=== PATIENT | male | born 1995 | race Caucasian/White ===

== ENCOUNTER 2017-12-23 17:56 | Emergency (ER) | payer BC ==
[2017-12-23 18:12] VITALS: BMI 20.7
[2017-12-23] MEDS ORDERED: LIDOCAINE HCL 1%, 10 MG/ML (20ML VIAL) ONE (18:37)
--- NOTE | 2017-12-23 19:06 | PDOC ---
History of Present Illness - General History Source: Patient Exam Limitations: No Limitations - History of Present Illness Initial Comments: 12/23/17 19:43 The patient is a 22 year old male with a significant PMH of Bipolar and ADHD who presents to the emergency department s/p fall earlier today. The patient states he was walking along a brick road when the bricks gave way and he fell into a hole. The patient presents to the ER with lacerations to the left wynne and right femur with mild swelling. The patient denies head trauma or any other injuries to other parts of his body. Unknown if patient had his tetanus shot. The patient denies chest pain, shortness of breath, headache and dizziness. Denies fever, chills, nausea, vomit, diarrhea and constipation. Denies dysuria, frequency, urgency and hematuria. Allergies: NKA Past surgical history: None reported. Social history: No reported alcohol, drug, or cigarette use. <Ashly Espino - Last Filed: 12/23/17 20:13> <Keara Emerson - Last Filed: 12/23/17 20:19> - General Chief Complaint: Injury Stated Complaint: FALL/INJURY Time Seen by Provider: 12/23/17 19:05 Past History <Ashly Espino - Last Filed: 12/23/17 20:13> - Past Medical History COPD: No Psychiatric Problems: Yes (bipolar,ADHD) - Suicide/Smoking/Psychosocial Hx Smoking History: Current every day smoker Have you smoked in the past 12 months: Yes Number of Cigarettes Smoked Daily: 5 Information on smoking cessation initiated: No Hx Alcohol Use: Yes Drug/Substance Use Hx: Yes (Marijuanna) <Keara Emerson - Last Filed: 12/23/17 20:19> - Past Medical History Allergies/Adverse Reactions: Allergies Allergy/AdvReac Type Severity Reaction Status Date / Time No Known Allergies Allergy Verified 12/23/17 18:04 Review of Systems - Review of Systems Able to Perform ROS?: Yes Comments:: 12/23/17 19:44 A complete review of 10 out of 10 review of systems is taken and is negative apart from what is previously mentioned below and in the HPI. <Ashly Espino - Last Filed: 12/23/17 20:13> *Physical Exam - Vital Signs Last Vital Signs Temp Pulse Resp BP Pulse Ox 97.1 F L 61 20 128/69 100 12/23/17 18:04 12/23/17 18:04 12/23/17 18:04 12/23/17 18:04 12/23/17 18:04 - Physical Exam Comments: 12/23/17 19:44 General Appearance: No acute distress, well nourished, well developed Head: Atraumatic Eyes: Pupils equal reactive round, extraocular movement intact Cardiac: Regular rate and rhythm, no murmurs, no rubs, no gallops Lungs: Clear to auscultation bilateral, good air movement bilaterally Abdomen: Soft, nondistended, normal bowel sounds, nontender to palpation Extremities: (+) 6cm jagged laceration to the left wynne but no deformity noted. 15cm superficial laceration with swelling to the right femur with mild swelling ; no deformity noted but tender. Full range of motion to all extremities, no cyanosis or clubbing. Skin: Warm and dry,no rashes or lesions, no rash, no petechiae Neuro: AOX3; Cranial Nerves 2-12 grossly intact. <Ashly Espino - Last Filed: 12/23/17 20:13> - Vital Signs Last Vital Signs Temp Pulse Resp BP Pulse Ox 97.1 F L 61 20 128/69 100 12/23/17 18:04 12/23/17 18:04 12/23/17 18:04 12/23/17 18:04 12/23/17 18:04 <eKara Emerson - Last Filed: 12/23/17 20:19> Procedures - Laceration/Wound Repair Left Anterior Distal Leg Wound Length: 5.0 to 7.5 cm Wound Explored: no foreign body present Wound's Depth, Shape: into muscle, irregular, flap Irrigated w/ Saline: Yes Betadine Prep: Yes Anesthesia: 1% Lidocaine Amount of Anesthetic (ccs): 10 Wound Debrided: moderate Wound Repaired With: Sutures Suture Size/Type: 4:0, nylon Number of Sutures: 4 Sterile Dressing Applied: Yes Splint Applied: No Sling Applied: No <Keara Emerson - Last Filed: 12/23/17 20:19> ED Treatment Course - Medications Given in the ED: ED Medications Discontinued Medications Generic Name Dose Route Start Last Admin Trade Name Freq PRN Reason Stop Dose Admin Diphtheria/Tetanus/Acell Pertussis 0.5 ml 12/23/17 19:18 12/23/17 19:20 Boostrix - IM 12/23/17 19:19 0.5 ml .ONCE ONE Administration <Ashly Espino - Last Filed: 12/23/17 20:13> Medical Decision Making - Medical Decision Making 12/23/17 20:00 10cc 1% lidocine applied. Betadine was given. Area was irrigated with 100cc of normal saline. Closed with 4 sutures; 1 mattress and 3 single interrupted sutures. Sterile piece of gauze placed over it. <Ashly Espino - Last Filed: 12/23/17 20:13> - Medical Decision Making 12/23/17 20:08 22-year-old male presents to the emergency department after falling and sustaining a laceration to his left anterior wynne and extensive superficial laceration to his right thigh. History of present illness he was walking on a brick wall that was old and fell through a hole when the upper bricks gave way He denies any any head injury or upper torso injury. He has no bruising or abrasions to upper extremity deformities Abdomen is soft. Lungs are clear to auscultation, there is no crepitus in his anterior chest. Abdomen is soft, nontender. Musculoskeletal there are no flank ecchymosis or tenderness. Neuro he is alert and oriented 3, motor strength 5 out of 5 bilaterally He was given strict since he did not know when he last received tetanus. Wounds are irrigated and his right 15 cm superficial laceration was cleansed and had bacitracin placed. Radiograph of his right femur was negative for any acute injury, no fractures Left anterior wynne laceration area was cleansed, and sutured with one mattress suture and 3 single interrupted sutures. <Keara Emerson - Last Filed: 12/23/17 20:19> *DC/Admit/Observation/Transfer - Attestations Scribe Attestion: 12/23/17 19:47 Documentation prepared by Ashly Espino, acting as medical research assistant for Keara Emerson MD. <Ashly Espino - Last Filed: 12/23/17 20:13> <Keara Emerson - Last Filed: 12/23/17 20:19> Diagnosis at time of Disposition: Laceration of left leg Qualifiers: Encounter type: initial encounter Qualified Code(s): S81.812A - Laceration without foreign body, left lower leg, initial encounter Abrasion hip/leg Qualifiers: Encounter type: initial encounter Laterality: right Qualified Code(s): S80.811A - Abrasion, right lower leg, initial encounter - Discharge Dispostion Disposition: HOME Condition at time of disposition: Stable - Patient Instructions Printed Discharge Instructions: DI for Suture Removal, DI for Abrasion Additional Instructions: 1. please have sutures removed from your left leg in 7-10 days 2. Apply bacitracin to your abrasion on your thigh 3. Take tylenol or motrin for pain
[2017-12-23] MEDS ORDERED: DIPHTH,PERTUSS(ACELL),TET 0.5 ML DISP.SYRIN IM ONE (19:18)
[2017-12-23 20:17] VITALS: BP 120/72; PULSE 70; TEMP 98.6
== END 2017-12-23 20:58 | disposition home or self-care (01) ==
LOC: JER 17:56
PROC: 0HQLXZZ Repair Left Lower Leg Skin, External Approach (ICD-10-PCS; principal; 2017-12-23)
PROC: 3E0234Z Introduction of Serum, Toxoid and Vaccine into Muscle, Percutaneous Approach (ICD-10-PCS; 2017-12-23)
DX: S81.812A Laceration without foreign body, left lower leg, initial encounter (principal); S70.311A Abrasion, right thigh, initial encounter; W17.89XA Other fall from one level to another, initial encounter; Y93.01 Activity, walking, marching and hiking; Y92.414 Local residential or business street as the place of occurrence of the external cause; Y99.8 Other external cause status
CPT/HCPCS: 73552-TC-RT-FY; 90715; 99283-25